=== PATIENT | female | born 1975 | race Caucasian/White ===

== ENCOUNTER 2018-12-22 13:13 | Day surgery (SDC) | payer OTHER ==
[~2018-12-22 13:13] MED LIST: ACETAMINOPHEN 1,000 MG/100 ML BTL IVPB ONE; CLINDAMYCIN PHOS/D5W 900MG 900 MG/50 ML BAG IVPB ONE; MORPHINE SULFATE 4 MG/ML VIAL ONE; RINGERS SOLUTION,LACTATED 1,000 ML IV ONE
[2018-12-22] MEDS ORDERED: LIDOCAINE 2% MDV (20MG/ML) 20ML VIAL IV ONE (13:14)
[2018-12-22] MEDS ORDERED: ONDANSETRON HCL IV 4 MG/2 ML VIAL IVP ONE (13:14)
[2018-12-22] MEDS ORDERED: PROPOFOL 10 MG/ML VIAL IV ONE (13:14)
[2018-12-22] MEDS ORDERED: SEVOFLURANE 250 ML INH ONE (13:14)
[2018-12-22] MEDS ORDERED: FENTANYL PF 100MCG/2ML VIAL IV ONE (13:14)
[2018-12-22] MEDS ORDERED: DEXAMETHASONE 4 MG/ML 1ML VIAL IVP ONE (13:14)
[2018-12-22] MEDS ORDERED: MIDAZOLAM HCL 2MG/2ML VIAL IV ONE (13:14)
[2018-12-22] MEDS ORDERED: MORPHINE SULFATE 5 MG/ML PFS IVP ONE (15:49)
[2018-12-22] MEDS ORDERED: METHYLPREDNISOLONE 40MG/VIAL IU ONE (15:49)
[2018-12-22] MEDS ORDERED: BUPIVACAINE 0.5% W/EPI MPF 30 ML VIAL SQ ONE (15:49)
[2018-12-22] MEDS ORDERED: FENTANYL PF 100MCG/2ML VIAL IVP PRN (16:21)
[2018-12-22] MEDS ORDERED: HYDROCODONE/APAP 7.5/325MG TABLET PO ONE (16:36)
--- NOTE | 2018-12-24 10:20 | Operative Note ---
DATE OF SURGERY: 12/22/2018 PREOPERATIVE DIAGNOSIS: Internal derangement of the right knee. POSTOPERATIVE DIAGNOSES: 1. 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 2. Peeling cartilage grade 3 chondromalacia of the medial femoral condyle. OPERATION: Right knee arthroscopy with chondroplasty of the patella and medial femoral condyles. SURGEON: Mikey Garrison M.D. ANESTHESIA: General. PREPARATION: Chloraprep. INDIVIDUAL CONSIDERATIONS: None. PROCEDURE: The patient was taken to the operating room and placed supine on the operating room table. He had a successful induction with general anesthetic. The right knee was prepped and draped in the usual fashion. The patient had a superior lateral inflow cannula placed. The skin was infiltrated with 0.5% Marcaine with epinephrine prior. The knee was then inflated with normal saline. An inferior medial and an inferior lateral portal were made in a similar fashion. The arthroscope was introduced through the inferior lateral portal up into the pouch. The patellofemoral compartment showed grade 3 change in the lateral facet. This was smoothed off with a shaver. The notch was okay. No loose bodies were seen in the pouch in either gutter. No significant synovitis. The medial femoral condyle had peeling cartilage from about 20 to 90 degrees primarily just lateral to the midline. This is smoothed off with a shaver. The meniscus and tibial plateau were intact. The notch, the cruciates were normal, the lateral compartment structures were normal. The knee was then irrigated out with saline to remove loose floating debris. The portals were closed with inocencio. 20 mL of 0.5% Marcaine with epinephrine along with 4 mg of morphine and 40 mg of Depo-Medrol were injected into the knee and a sterile bulky compressive dressing was applied. The patient tolerated the procedure well. The needle and sponge counts were correct. Estimated blood loss was minimal. He was taken back to recovery in good condition. There were no complications. [facility]ENTERLiliana
== END 2018-12-22 17:01 | disposition home or self-care (01) ==
LOC: SUR 13:13
PROVIDERS: ATTEND Orthopaedic Surgery
DX: M94.261 Chondromalacia, right knee (principal); M79.7 Fibromyalgia; I45.6 Pre-excitation syndrome
CPT/HCPCS: J1030; J2270; J2405; J3490

== ENCOUNTER 2019-04-12 07:56 | Day surgery (SDC) | payer OTHER ==
[~2019-04-12 07:56] MED LIST changes: -ACETAMINOPHEN 1,000 MG/100 ML BTL IVPB ONE; -CLINDAMYCIN PHOS/D5W 900MG 900 MG/50 ML BAG IVPB ONE; +FAMOTIDINE 20MG TABLET PO ONE; +MECLIZINE 25 MG TABLET PO ONE; +METOCLOPRAMIDE 10 MG TABLET PO ONE; -MORPHINE SULFATE 4 MG/ML VIAL ONE; -RINGERS SOLUTION,LACTATED 1,000 ML IV ONE; +VANCOMYCIN 1GM/200ML PREMIX 1 GM/200 ML PIGGYBACK IVPB ONE
[2019-04-12] MEDS ORDERED: PROPOFOL 10 MG/ML VIAL IV ONE (07:57)
[2019-04-12] MEDS ORDERED: 0.9 % SODIUM CHLORIDE 10 ML VIAL IVP ONE (07:57)
[2019-04-12] MEDS ORDERED: TRANEXAMIC ACID 1,000 MG in 0.9 % SODIUM CHLORIDE 100ML 100 ML IV ONE (07:57)
[2019-04-12] MEDS ORDERED: MIDAZOLAM HCL 2MG/2ML VIAL IV ONE (07:57)
[2019-04-12] MEDS ORDERED: GLYCOPYRROLATE 0.2 MG/ML ML IV ONE (07:57)
[2019-04-12] MEDS ORDERED: LIDOCAINE 2% MDV (20MG/ML) 20ML VIAL IV ONE (07:57)
[2019-04-12] MEDS ORDERED: ROPIVACAINE HCL (NAROPIN) /PF 5MG/ML 20ML VIAL IV ONE (07:57)
[2019-04-12] MEDS ORDERED: TRANEXAMIC ACID 1,000 MG/10 ML ML IV ONE (07:57)
[2019-04-12] MEDS ORDERED: DEXAMETHASONE 4 MG/ML 1ML VIAL IVP ONE (07:57)
[2019-04-12] MEDS ORDERED: RINGERS SOLUTION,LACTATED 1,000 ML IV ONE ×2 (08:30→11:15)
[2019-04-12 09:27] LABS: ABO GROUP A; RH TYPE POSITIVE
[2019-04-12 09:28] LABS: ANTIBODY SCREEN NEGATIVE (NEGATIVE)
[2019-04-12] MEDS ORDERED: CEFAZOLIN 2 Gram 2 GM/50 ML BAG IVPB ONE (10:28)
[2019-04-12] MEDS ORDERED: BUPIVACAINE 0.5% W/EPI MPF 30 ML VIAL SQ ONE (10:59)
[2019-04-12] MEDS ORDERED: TRANEXAMIC ACID 1,000 MG/10 ML ML IU ONE (10:59)
[2019-04-12] MEDS ORDERED: HYDROCODONE/APAP 10/325 TABLET PO PRN (11:51)
[2019-04-12] MEDS ORDERED: NALOXONE 0.4 MG/1 ML VIAL IVP PRN (11:51)
[2019-04-12] MEDS ORDERED: ACETAMINOPHEN 325 MG TAB PO PRN (11:51)
[2019-04-12] MEDS ORDERED: KETOROLAC 30 MG/ML VIAL IVP PRN ×2 (11:51)
[2019-04-12] MEDS ORDERED: AL HYDROX/MAG HYDROX 30ML UD PO PRN (11:51)
[2019-04-12] MEDS ORDERED: BISACODYL 10 MG SUPP RC PRN (11:51)
[2019-04-12] MEDS ORDERED: ONDANSETRON HCL IV 4 MG/2 ML VIAL IVP PRN (11:51)
[2019-04-12] MEDS ORDERED: ZOLPIDEM TARTRATE 5 MG TABLET PO PRN (11:51)
[2019-04-12] MEDS ORDERED: TRAMADOL HCL 50 MG TABLET PO PRN (11:51)
[2019-04-12] MEDS ORDERED: ACETAMINOPHEN W/ CODEINE 300MG/60MG TABLET PO PRN ×2 (11:51)
[2019-04-12] MEDS ORDERED: MAGNESIUM HYDROXIDE 30 ML UDC PO PRN (11:51)
[2019-04-12] MEDS ORDERED: HYDROMORPHONE HCL 2 MG/ML VIAL IM PRN (11:51)
[2019-04-12] MEDS ORDERED: DIPHENHYDRAMINE HCL 25 MG CAPSULE PO PRN (11:51)
[2019-04-12] MEDS: POTASSIUM CHLORIDE/D5-0.9%NACL 20 MEQ/1,000 ML BAG IV SCH ×2 (14:09→21:10)
[2019-04-12] MEDS: HYDROCODONE/APAP 10/325 TABLET PO PRN (14:13)
--- NOTE | 2019-04-12 15:30 | Operative Note ---
DATE OF SURGERY: 04/12/2019 PREOPERATIVE DIAGNOSIS: End-stage arthrosis of the right knee. POSTOPERATIVE DIAGNOSIS: End-stage arthrosis of the right knee. OPERATION: Cemented right total knee arthroplasty using [employer] Carmela II components with a size 5 Oxinium femur, a size 4 stemmed tibia baseplate, a 9 mm lipped highly crosslinked tibial insert, and a 35 mm all-plastic patella. STAFF SURGEON: Mikey Garrison MD ANESTHESIA: Spinal. PREPARATION: Chloraprep. INDIVIDUAL CONSIDERATIONS: None. DIETARY SERVICE AIDE: Mrs. Perlita Hernandez PROCEDURE: The patient was taken to the operating room, placed supine on the operating room table. She had a successful induction of a spinal anesthetic. The right lower extremity was prepped and draped in the usual fashion. The limb was elevated and tourniquet was inflated to 250 mmHg. The patient had a midline approach to the knee. Sharp dissection carried down through skin and subcutaneous tissue. Small veins were coagulated with a Bovie. A medial arthrotomy was performed. The patella was everted and the knee was flexed. The patient had aevl-dx-waox contact medially and some in the patellofemoral compartment. Fat pad was resected, ACL was sacrificed, and provisional anterior meniscectomies were performed. The capsule was released from the medial proximal tibia. The initial femoral boat pilot hole was then made freehand. The intramedullary femoral cutting jig was placed. It was cut in 7.0 degrees of valgus and adjusted for rotation and secured with pins for a 10 mm resection. The initial transverse cut was then made. The skin guide was placed in the anterior and posterior boat pilot holes. It was found that a size 5 would be appropriate but I needed to translate it anteriorly 2 mm. The anterior and posterior cuts followed by chamfer cuts were made. Osteophytes removed, and a size 5 trial was placed and found to fit well. The tibia was brought forward, and the remainder of the meniscal remnants removed with a Bovie. The extraarticular tibial cutting jig was placed. It was cut in neutral with a 3-degree AP slope. It was set for a 9 mm resection keyed off the high lateral side and secured with pins. When cutting the tibia, care was taken to preserve the PCL insertion on the tibia. It was found that a size 4 baseplate would be appropriate. It was adjusted for rotation and secured with pins. With a 9 mm trial and femoral trial, there was excellent motion and stability, ligamentous balance, and rotation alignment were thought to be normal. Femoral boat pilot holes were impacted and tri-flange tibial stamp was impacted, and these trial components were removed. The patient had a thick patella and roughly 9 mm of bone was removed freehand with an oscillating saw. I could easily fit a 35 patella. The 3 boat pilot holes were drilled. The tourniquet was let down briefly to get bleeders posteriorly and then placed back up again. The knee was then thoroughly irrigated out with pulsatile Betadine and saline to remove any visual or palpable debris. Bony surfaces were then dried. A size 4 stemmed tibia baseplate was cemented into place followed by impaction of the 9 mm lipped highly crosslinked tibial insert followed by cementing in the size 5 Oxinium femur followed by cementing in the 35 mm patella. The implant surfaces were compressed, excess cement was removed. After the cement had set, there was excellent motion and stability, ligamentous balance, rotation alignment, and patellofemoral tracking were normal. No lateral release was required. After thorough irrigation, tourniquet was let down. Hemostasis was obtained with a Bovie. The capsule and periosteum were then infiltrated with 30 mL of 0.5% Marcaine with epinephrine along with the skin and subcutaneous tissue. The capsule was then closed with a running #2 quill, subcu was closed in layers with running 0 quill, skin was closed with inocencio. The patient had 1 g of tranexamic acid mixed with 30 mL of saline injected into the knee, and a sterile bulky compressive dressing was applied. The patient tolerated the procedure well. Needle and sponge counts were correct. Estimated blood loss was minimal, and she was taken back to recovery in good condition. There were no complications. SABA
--- NOTE | 2019-04-12 17:15 | Rehab Evaluation ---
Patient Information - Patient Information Diagnosis: R knee DJD Ordered Treatment: PT Evaluate and Treat Status: Initial Evaluation Surgery: Yes (R TKA) Date of Surgery: 04/12/19 Past Medical/Surgical Hx: PAST MEDICAL/SURGICAL HISTORY Surgery to Affected Area? No Recent Surgery? 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 Exercise Tolerance Fair Hx of Migraines Yes: POSSIBLY Comment: D/T KNEE PAIN PMH - Neuro Hx Neurological Disorders Yes Hx Dizziness Yes: WITH LOW BLOOD PRESSURE ALSO HAS VERTIGO Hx Headaches Yes: ONCE A WEEK PMH - GI Hx Gastrointestinal Disorders Yes Hx Gastroesophageal Reflux Yes: WITH COFFEE Hx Irritable Bowel Yes: CHRONIC CONSTIPATION PMH - Hx Genitourinary Disorders No Comment: S/P HYST PMH - Endocrine Hx Endocrine Disorders No PMH - Musculoskeletal Hx Musculoskeletal Disorders Yes Hx Arthritis Yes Hx Fibromyalgia Yes PMH - Psych Hx Psychiatric Problems Yes Hx Anxiety Yes PMH - Hematology/Oncology Hx Hematology/Oncology Yes Disorders Hx Bruising Yes: BRUISES EASILY Premorbid Status: Detail (The patient was independent with all mobility prior to surgery.) Social History: Detail (The patient lives with spouse, sister in law and daughter in a one story house with a ramp. The bathroom is equipped with a tub/shower combination, shower chair,elevated toilet and grab bars by both toilet and tub. The patient has a front wheeled walker, and stand cane.) Precautions: [place], Fall, Other (WBAT on the R LE.) - Time With Patient Total Time Spent With Patient (Min): 30 Treatment Procedures: Detail (Initial Evaluation low complexity, gait training.) Subjective Information - Subjective Information Per Patient (The patient had no complaints of pain initially and minimal complaints after ambulating.) Objective Data - Mental Status Patient Orientation: Oriented x3 - Visual Perception Appears within normal limits for therapeutic activities - ROM Not within normal limits (The patient's R knee is limited s/p surgery.All other LE AROM is WNL.) - Strength/Tone Not within normal limits (The patient's R LE strength was not tested s/p surgery however is functional ie: patient was able to complete SLR. Patient's L LE strength is functional.) - Bed Mobility Independent (Independent with supine to and from sit and scooting up in bed.) - Transfers Independent (The patient is independent with sit to and from stand transfer.) - Balance Balance Sitting: Good Balance Standing: Good - Gait Detail (The patient ambulated with front wheeled walker a distance of 54 feet x 1 WBAT on the R LE with supervison for safety only.) Therapy Assessment - Therapy Assessment Detail (The patient was independent with bed mobility, transfers and required supervision for safety only with ambulation. Feel the patient will progress well with mobility.) Problem List - Problem List Physical Therapy Problem List: Detail (Decreased R knee AROM and R LE strength as to be expected following surgery.) Goals - Goals Physical Therapy Goals: 1) The patient will ambulate on stairs using proper te chnique with supervision for safety. 2) The patient will be independent with TKA HEP Prognosis - Prognosis Good Plan - Plan Physical Therapy Plan: PT 1-2 sessions for gait training on levels, stairs and instruction in HEP.
[2019-04-12] MEDS: CEFAZOLIN 2 Gram 2 GM/50 ML BAG IVPB SCH (17:32)
[2019-04-12] MEDS: DOCUSATE SODIUM 100 MG CAPSULE PO SCH (21:06)
[2019-04-13] MEDS: CEFAZOLIN 2 Gram 2 GM/50 ML BAG IVPB SCH ×2 (01:32→10:23)
[2019-04-13] MEDS: HYDROCODONE/APAP 10/325 TABLET PO PRN ×3 (01:32→13:21)
[2019-04-13] MEDS: POTASSIUM CHLORIDE/D5-0.9%NACL 20 MEQ/1,000 ML BAG IV SCH ×3 (01:34→12:56)
[2019-04-13 06:43] LABS: HEMATOCRIT 35.2 % (35.0-47.0); HEMOGLOBIN 12.1 gm/dl (11.6-16.0)
[2019-04-13 06:58] LABS: BLOOD UREA NITROGEN 12 mg/dL (6-20); CREATININE 0.8 mg/dL (0.5-0.9); EST GLOMERULAR FILTRATION RATE > 60 mL/min; GLUCOSE,RANDOM 120 mg/dL (74-109)
--- NOTE | 2019-04-13 08:05 | Rehab Evaluation ---
Patient Information - Patient Information Diagnosis: R knee DJD Ordered Treatment: OT Evaluate and Treat Status: Initial Evaluation Surgery: Yes (R TKA) Date of Surgery: 04/12/19 Past Medical/Surgical Hx: PAST MEDICAL/SURGICAL HISTORY Surgery to Affected Area? No Recent Surgery? 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 Exercise Tolerance Fair Hx of Migraines Yes: POSSIBLY Comment: D/T KNEE PAIN PMH - Neuro Hx Neurological Disorders Yes Hx Dizziness Yes: WITH LOW BLOOD PRESSURE ALSO HAS VERTIGO Hx Headaches Yes: ONCE A WEEK PMH - GI Hx Gastrointestinal Disorders Yes Hx Gastroesophageal Reflux Yes: WITH COFFEE Hx Irritable Bowel Yes: CHRONIC CONSTIPATION PMH - Hx Genitourinary Disorders No Comment: S/P HYST PMH - Endocrine Hx Endocrine Disorders No PMH - Musculoskeletal Hx Musculoskeletal Disorders Yes Hx Arthritis Yes Hx Fibromyalgia Yes PMH - Psych Hx Psychiatric Problems Yes Hx Anxiety Yes PMH - Hematology/Oncology Hx Hematology/Oncology Yes Disorders Hx Bruising Yes: BRUISES EASILY Premorbid Status: Detail (The patient was independent with all mobility prior to surgery. She and spouse shared home mgmt and meal prep tasks and her sister in law completes the laundry.) Social History: Detail (The patient lives with spouse, sister in law and daughter in a one story house with basement with a ramp. The bathroom is equipped with a tub/shower combination, shower chair, grab bar and hand held shower as well as an elevated toilet and grab bar. The patient has a front wheeled walker, and straight cane.) Precautions: [place], Fall, Other (WBAT on the R LE.) - Time With Patient Total Time Spent With Patient (Min): 40 Treatment Procedures: Detail (OT eval low complexity) Subjective Information - Subjective Information Per Patient Objective Data - Pain Pain Present: Yes (03/02) - Mental Status Patient Orientation: Oriented x3 - Visual Perception Appears within normal limits for therapeutic activities - ROM Within normal limits (Victor M UE AROM WNL) - Strength/Tone Within normal limits (Victor M UE strength WNL) - Coordination Appears within normal limits for therapeutic activities - Bed Mobility Independent (Ind with supine to sit) - Transfers Independent (Ind with sit to stand from EOB, toilet and chair heights.) - Balance Balance Sitting: Good Balance Standing: Good - Sensation Intact - Gait Detail (Pt ambulating in room with 2 wheeled walker and SBA) - ADL's/IADL's Detail (Pt educated and able to demonstrate learning of modified LE dressing ping hniques including doffing briefs and slipper socks and donning underwear, shorts, socks and tennis shoes. Reviewed kitchen and shower safety and modifications, pt verbalized understanding.) Therapy Assessment - Therapy Assessment Detail (Pt is Ind with modified LE dressing techniques.) Problem List - Problem List Physical Therapy Problem List: Detail (Decreased R knee AROM and R LE strength as to be expected following surgery.) Occupational Therapy Problem List: Detail (No current IP OT problems identified.) Goals - Goals Physical Therapy Goals: 1) The patient will ambulate on stairs using proper technique with supervision for safety. 2) The patient will be independent with TKA HEP Occupational Therapy Goals: No current IP OT goals identified. Prognosis - Prognosis Good Plan - Plan Physical Therapy Plan: PT 1-2 sessions for gait training on levels, stairs and instruction in HEP. Occupational Therapy Plan: No further IP OT recommended. Thank you for this referral.
[2019-04-13] MEDS ORDERED: CALCIUM CARBONATE 500 MG TAB.CHEW PO PRN (08:37)
[2019-04-13] MEDS ORDERED: FERROUS SULFATE 325 MG TAB PO SCH (10:00)
[2019-04-13] MEDS ORDERED: RIVAROXABAN 10 MG TABLET PO SCH (10:00)
[2019-04-13] MEDS ORDERED: DULOXETINE HCL 30 MG CAPSULE.DR PO SCH (10:00)
[2019-04-13] MEDS: DOCUSATE SODIUM 100 MG CAPSULE PO SCH (10:22)
--- NOTE | 2019-04-13 11:58 | Physical Therapy Tx Note ---
Physical Therapy Tx Note - Treatment Note Tolerated: Good Total Time Spent With Patient: 25 Physical Therapy Tx Note: Detail (The patient was independent with TKA HEP that included: seated heel slides, SLR, ankle pumps, quad sets, gluteal sets and hamstring sets. The patient ambulated with front wheeled walker a distance of 108 feet x 1 WBAT on the R LE independently. The patient ambulated on stairs with use of folded walker and railing with supervision for safety using proper technique. The patient has met all inpatient PT goals and is discharged from inpatient PT.) Physical Therapy Problem List: Detail (Decreased R knee AROM and R LE strength as to be expected following surgery.) Physical Therapy Goals: 1) The patient will ambulate on stairs using proper technique with supervision for safety. (Goal Met). 2) The patient will be independent with TKA HEP (Goal Met) Physical Therapy Plan: PT 1-2 sessions for gait training on levels, stairs and instruction in HEP.
== END 2019-04-13 16:10 | disposition home health service (06) ==
LOC: SUR 07:56 → MEDSURG 12:43 → SUR 04-13 16:10
PROVIDERS: ATTEND Orthopaedic Surgery
DX: M17.11 Unilateral primary osteoarthritis, right knee (principal); M79.7 Fibromyalgia; I25.10 Atherosclerotic heart disease of native coronary artery without angina pectoris
CPT/HCPCS: 27447; 01402; 64447; 85018; 85014; 80048; 86900; 86901; 86850; J1885 ×2; J0690 ×2; J3490 ×3; J2795; J3370; 76942; J3480; J7120